=== PATIENT | male | born 1990 ===

== ENCOUNTER 2018-05-30 20:33 | Emergency (ER) | payer BC, MEDICAID ==
[2018-05-30 20:53] VITALS: BMI 29.1
[2018-05-30 20:54] VITALS: RESP 18; TEMP 98.7
[2018-05-30 22:13] LABS: BARBITURATES, UR NEGATIVE (NEGATIVE); BENZODIAZEPINES, UR NEGATIVE (NEGATIVE); OPIATES, UR NEGATIVE (NEGATIVE); PHENCYCLIDINE, UR NEGATIVE (NEGATIVE)
--- NOTE | 2018-05-30 22:16 | ED PDOC ---
Arrival/HPI - General Historian: Patient - History of Present Illness Narrative History of Present Illness (Text): 05/30/18 21:12 27 year old male, with no significant past medical history, presents to the emergency department requesting urine drug screen. Patient is on probation and wants to show proof to his public records officer that he is not on drugs. Patient states he has not used for over a year. Patient denies any other complaints. Patient denies any fever, chills, chest pain, shortness of breath, nausea, vomiting, diarrhea, urinary symptoms, back pain, neck pain, headache, dizziness, or any other complaints. Time/Duration: Prior to Arrival Activities at Onset: Light <Justine Aleman PA-C - Last Filed: 05/31/18 00:49> <Drew Albarado - Last Filed: 05/31/18 06:05> - General Chief Complaint: Medical Clearance Time Seen by Provider: 05/30/18 21:21 Past Medical History - Provider Review Nursing Documentation Reviewed: Yes - Pulmonary Hx Pneumonia: Yes - Neurological Hx Seizures: Yes (as child) Other/Comment: Patient has seizures at child, patient has been taken off seizure medications. - Psychiatric Hx Substance Use: Yes (PAST) - Anesthesia Hx Anesthesia: No <Justine Aleman PA-C - Last Filed: 05/31/18 00:49> Family/Social History - Physician Review Nursing Documentation Reviewed: Yes Family/Social History: No Known Family HX Smoking Status: Former Smoker Hx Alcohol Use: No Hx Substance Use: Yes (PAST) <Justine Aleman PA-C - Last Filed: 05/31/18 00:49> Allergies/Home Meds <Justine Aleman PA-C - Last Filed: 05/31/18 00:49> <Drew Albarado - Last Filed: 05/31/18 06:05> Allergies/Adverse Reactions: Allergies No Known Allergies Allergy (Verified 05/30/18 20:53) Review of Systems - Physician Review All systems were reviewed & negative as marked: Yes - Review of Systems Constitutional: absent: Fevers, Other (Chills) Respiratory: absent: SOB Cardiovascular: absent: Chest Pain Gastrointestinal: absent: Diarrhea, Nausea, Vomiting Genitourinary Male: absent: Dysuria, Frequency, Hematuria Musculoskeletal: absent: Back Pain, Neck Pain Neurological: absent: Headache, Dizziness <Justine Aleman PA-C - Last Filed: 05/31/18 00:49> Physical Exam Vital Signs Reviewed: Yes Vital Signs Temp Pulse Resp BP Pulse Ox 05/30/18 20:53 98.7 F 85 18 145/77 97 Temperature: Afebrile Blood Pressure: Normal Pulse: Regular Respiratory Rate: Normal Appearance: Positive for: Well-Appearing, Non-Toxic, Comfortable Pain Distress: None Mental Status: Positive for: Alert and Oriented X 3 - Systems Exam Head: Present: Atraumatic, Normocephalic Pupils: Present: PERRL Extroacular Muscles: Present: EOMI Conjunctiva: Present: Normal Mouth: Present: Moist Mucous Membranes Neck: Present: Normal Range of Motion Respiratory/Chest: Present: Clear to Auscultation, Good Air Exchange. No: Respiratory Distress, Accessory Muscle Use Cardiovascular: Present: Regular Rate and Rhythm, Normal S1, S2. No: Murmurs Abdomen: No: Tenderness, Distention, Peritoneal Signs Back: Present: Normal Inspection Upper Extremity: Present: Normal Inspection. No: Cyanosis, Edema Lower Extremity: Present: Normal Inspection. No: Edema Neurological: Present: GCS=15, CN II-XII Intact, Speech Normal Skin: Present: Warm, Dry, Normal Color. No: Rashes Psychiatric: Present: Alert, Oriented x 3, Normal Insight, Normal Concentration <Justine Aleman PA-C - Last Filed: 05/31/18 00:49> Vital Signs Temp Pulse Resp BP Pulse Ox 05/30/18 22:37 80 18 132/74 100 05/30/18 20:53 98.7 F 85 18 145/77 97 <Drew Albarado - Last Filed: 05/31/18 06:05> Medical Decision Making ED Course and Treatment: 05/30/18 21:20 Impression: 27 year old male presents requesting urine drug screen for proof to give to his public records officer. Plan: -- UDS -- Reassess and disposition Progress Notes: UDS : +cannabis Results d/w the patient, advised to follow up with pmd or the clinic. - Lab Interpretations Lab Results: Lab Results 05/30/18 21:44: Urine Opiates Screen Negative, Urine Methadone Screen Negative, Ur Barbiturates Screen Negative, Ur Phencyclidine Scrn Negative, Ur Amphetamines Screen Negative, U Benzodiazepines Scrn Negative, U Oth Cocaine Metabols Negative, U Cannabinoids Screen Positive H I have reviewed the lab results: Yes <Justine Aleman PA-C - Last Filed: 05/31/18 00:49> ED Course and Treatment: 05/31/18 06:05 The documented history was done by the physician application support administrator. The documented physical exam was done by the physician application support administrator. The documented procedures were done by the physician application support administrator, I was available for consultation during the PA/MANAGER SCIENTIFIC evaluation. The chart was reviewed by me, and I agree with the management and plan. - Lab Interpretations Lab Results: Lab Results 05/30/18 21:44: Urine Opiates Screen Negative, Urine Methadone Screen Negative, Ur Barbiturates Screen Negative, Ur Phencyclidine Scrn Negative, Ur Amphetamines Screen Negative, U Benzodiazepines Scrn Negative, U Oth Cocaine Metabols Negative, U Cannabinoids Screen Positive H <Drew Albarado - Last Filed: 05/31/18 06:05> - PA / MANAGER SCIENTIFIC / Resident Statement MD/DO has reviewed & agrees with the documentation as recorded. - Scribe Statement The provider has reviewed the documentation as recorded by the Cesilia Goodson Provider Scribe Attestation: All medical record entries made by the Scribe were at my direction and pers onally dictated by me. I have reviewed the chart and agree that the record accurately reflects my personal performance of the history, physical exam, medical decision making, and the department course for this patient. I have also personally directed, reviewed, and agree with the discharge instructions and disposition. <Justine Aleman PA-C - Last Filed: 05/31/18 00:49> Disposition/Present on Arrival - Present on Arrival Any Indicators Present on Arrival: No History of DVT/PE: No History of Uncontrolled Diabetes: No Urinary Catheter: No History of Decub. Ulcer: No History Surgical Site Infection Following: None - Disposition Have Diagnosis and Disposition been Completed?: Yes Disposition Time: 22:15 Patient Plan: Discharge <Justine Aleman PA-C - Last Filed: 05/31/18 00:49> <Drew Albarado - Last Filed: 05/31/18 06:05> - Disposition Diagnosis: Positive urine drug screen Disposition: HOME/ ROUTINE Condition: STABLE Discharge Instructions (ExitCare): Drug Testing Referrals: [facility] [place] [Outside] - Follow up with primary Forms: [employer] (Pashto)
[2018-05-30 22:38] VITALS: BP 132/74; PULSE 80; O2SAT 100
== END 2018-05-30 22:37 | disposition home or self-care (01) ==
LOC: ED 20:33
DX: R82.5 Elevated urine levels of drugs, medicaments and biological substances (principal)
CPT/HCPCS: 99282; G0480

== ENCOUNTER 2018-07-02 20:58 | Emergency (ER) | payer BC, MEDICAID ==
[2018-07-02] MEDS ORDERED: Albuterol-Ipratrop 3 mg / 0.5 (3 ml) UD ONE (21:43)
--- NOTE | 2018-07-02 21:54 | ED PDOC ---
Arrival/HPI <Javad Hartmann - Last Filed: 07/02/18 22:28> - General Historian: Patient - History of Present Illness Narrative History of Present Illness (Text): 07/02/18 22:32 27-year-old male presents today requesting drug screen. Patient states his disciplinary hearing officer told him to come to the emergency room to get a drug screen. Patient denies using any drugs. He denies any complaints. <Lora Cadet - Last Filed: 07/02/18 22:36> - General Chief Complaint: Medical Clearance Time Seen by Provider: 07/02/18 20:59 Past Medical History - Provider Review Nursing Documentation Reviewed: Yes - Travel History Have you recently traveled outside [place] w/in the past 3 mons?: No - Infectious Disease Hx of Infectious Diseases: None - Pulmonary Hx Pneumonia: Yes - Neurological Hx Seizures: Yes (as child) Other/Comment: Patient has seizures at child, patient has been taken off seizure medications. - Psychiatric Hx Substance Use: Yes (PAST) - Anesthesia Hx Anesthesia: No <Lora Cadet - Last Filed: 07/02/18 22:36> Family/Social History - Physician Review Nursing Documentation Reviewed: Yes Family/Social History: Unknown Family HX Smoking Status: Former Smoker Hx Alcohol Use: No Hx Substance Use: Yes (PAST) <Lora Cadet - Last Filed: 07/02/18 22:36> Allergies/Home Meds <ShahbazJavad - Last Filed: 07/02/18 22:28> <Lora Cadet - Last Filed: 07/02/18 22:36> Allergies/Adverse Reactions: Allergies No Known Allergies Allergy (Verified 06/20/18 10:22) Home Medications: Home Meds Medication Instructions Recorded Confirmed No Known Home Med 07/02/18 07/02/18 Review of Systems - Review of Systems Constitutional: absent: Fatigue, Fevers Respiratory: absent: SOB, Cough Cardiovascular: absent: Chest Pain, Palpitations Gastrointestinal: absent: Abdominal Pain, Nausea, Vomiting Genitourinary Male: absent: Dysuria Musculoskeletal: absent: Arthralgias Skin: absent: Rash, Pruritis Neurological: absent: Headache, Dizziness Psychiatric: absent: Anxiety, Depression <Lora Cadet - Last Filed: 07/02/18 22:36> Physical Exam Vital Signs Temp Pulse Resp BP Pulse Ox 07/02/18 21:20 98.3 F 91 H 17 114/75 97 <Javad Hartmann - Last Filed: 07/02/18 22:28> Vital Signs Reviewed: Yes Vital Signs Temp Pulse Resp BP Pulse Ox 07/02/18 21:20 98.3 F 91 H 17 114/75 97 Temperature: Afebrile Blood Pressure: Normal Pulse: Regular Respiratory Rate: Normal Appearance: Positive for: Well-Appearing, Non-Toxic, Comfortable Pain Distress: None Mental Status: Positive for: Alert and Oriented X 3 - Systems Exam Head: Present: Atraumatic Respiratory/Chest: Present: Clear to Auscultation Cardiovascular: Present: Regular Rate and Rhythm Neurological: Present: GCS=15 Skin: Present: Warm, Dry, Normal Color. No: Rashes Psychiatric: Present: Alert, Oriented x 3 <Lora Cadet - Last Filed: 07/02/18 22:36> Medical Decision Making - Lab Interpretations Lab Results: Lab Results 07/02/18 21:51: Urine Opiates Screen Negative, Urine Methadone Screen Negative, Ur Barbiturates Screen Negative, Ur Phencyclidine Scrn Negative, Ur Amphetamines Screen Negative, U Benzodiazepines Scrn Negative, U Oth Cocaine Metabols Negative, U Cannabinoids Screen Negative <Javad Hartmann - Last Filed: 07/02/18 22:28> ED Course and Treatment: 07/02/18 22:35 27yr old male presents today for Drug screen. denies any complaints. UDS: negative impression; Drug screen evaluation f/u with PMd return if symptoms worsen,persist or if new concerning symptoms develop. <Lora Cadet - Last Filed: 07/02/18 22:36> - PA / PATTERNMAKER PLASTER / Resident Statement JACKSON has reviewed & agrees with the documentation as recorded. JACKSON has examined the patient and agrees with the treatment plan. <Javad Hartmann - Last Filed: 07/02/18 22:28> Disposition/Present on Arrival <Javad Hartmann - Last Filed: 07/02/18 22:28> - Present on Arrival Any Indicators Present on Arrival: No History of DVT/PE: No History of Uncontrolled Diabetes: No Urinary Catheter: No History of Decub. Ulcer: No History Surgical Site Infection Following: None - Disposition Have Diagnosis and Disposition been Completed?: Yes Disposition Time: 21:43 Patient Plan: Discharge <Lora Cadet - Last Filed: 07/02/18 22:36> - Disposition Diagnosis: Encounter for drug screening Disposition: HOME/ ROUTINE Patient Problems: Current Active Problems Problem Status Onset Encounter for drug screening Acute Condition: GOOD Additional Instructions: Follow up with PMD return if any concerning symptoms develop. Referrals: Lizbet Urena [Primary Care Provider] - Follow up with primary Forms: [facility] ([place])
[2018-07-02 22:28] LABS: BARBITURATES, UR NEGATIVE (NEGATIVE); BENZODIAZEPINES, UR NEGATIVE (NEGATIVE); OPIATES, UR NEGATIVE (NEGATIVE); PHENCYCLIDINE, UR NEGATIVE (NEGATIVE)
[2018-07-03 01:19] VITALS: BP 114/75; PULSE 91; RESP 17; TEMP 98.3; O2SAT 97; BMI 29.8
== END 2018-07-02 22:30 | disposition home or self-care (01) ==
LOC: ED 20:58
DX: Z04.89 Encounter for examination and observation for other specified reasons (principal)
CPT/HCPCS: 99282; G0480